=== PATIENT | female | born 1935 | race Caucasian/White ===

== ENCOUNTER 2017-04-26 11:37 | Observation (INO) | payer MEDICARE, OTHER ==
[2017-04-26] MEDS ORDERED: ASPIRIN 81 MG TABLET, CHEWABLE PO ONE (12:06)
--- NOTE | 2017-04-26 12:38 | ER Document Report ---
ED General - General Mode of Arrival: Wheelchair Information source: Patient, Relative TRAVEL OUTSIDE OF THE [place] IN LAST 30 DAYS: No <MARGARET TOM - Last Filed: 04/26/17 16:15> <KIRILL GASPAR - Last Filed: 04/26/17 18:35> - General Chief Complaint: Vomiting Stated Complaint: ALTERED MENTAL STATUS Time Seen by Provider: 04/26/17 11:52 Notes: Patient is an 81 year old female with a history of Parkinsons and Bronchiectasis presents to the emergency department via EMS accompanied by son and daughter and law complaining of a syncopal episode onset this morning. Daughter in law states the patient was sitting in [facility] unresponsive, still breathing with an excessive amount of drooling. Daughter in law states she was unresponsive for around 3 minutes then proceeded to wake up agitated. Patient states that she remembers feeling nauseous before she had her syncopal episode. Patient states that Dr. Mcnulty is her graphics intern in [place] and Dr. Godoy is her PCP. Patient normally takes nebulizer treatments. (MARGARET TOM) - Related Data Allergies/Adverse Reactions: No Known Allergies Allergy (Unverified 10/22/15 20:59) Past Medical History - General Information source: Patient, Relative - Social History Smoking Status: Never Smoker Smoking Education Provided: No Frequency of alcohol use: None Family History: Reviewed & Not Pertinent Patient has suicidal ideation: No Patient has homicidal ideation: No <MARGARET TOM - Last Filed: 04/26/17 16:15> Review of Systems - Review of Systems Constitutional: No symptoms reported EENT: No symptoms reported Cardiovascular: No symptoms reported Respiratory: No symptoms reported Gastrointestinal: See HPI, Nausea Genitourinary: No symptoms reported Female Genitourinary: No symptoms reported Musculoskeletal: No symptoms reported Skin: No symptoms reported Hematologic/Lymphatic: No symptoms reported Neurological/Psychological: See HPI, Lost consciousness -: Yes All other systems reviewed and negative <MARGARET TOM - Last Filed: 04/26/17 16:15> Physical Exam <MARGARET TOM - Last Filed: 04/26/17 16:15> <KIRILL GASPAR - Last Filed: 04/26/17 18:35> - Vital signs Vitals: BP Pulse Ox 136/79 H 97 04/26/17 11:47 04/26/17 11:47 - Notes Notes: GENERAL: Patient appears tired, interacts well. No acute distress. Cachetic HEAD: Left sided slight facial droop around the left eyebrow. EYES: Pupils equal, round, and reactive to light. Extraocular movements intact. ENT: Oral mucosa moist, tongue midline. NECK: Full range of motion. Supple. Trachea midline. LUNGS: Wet cough. Trace expiratory wheezes and rhonchi. No respiratory distress. HEART: Regular rate and rhythm. No murmurs, gallops, or rubs. ABDOMEN: Soft, non-tender. Non-distended. Bowel sounds present in all 4 quadrants. EXTREMITIES: Moves all 4 extremities spontaneously. No edema, radial and dorsalis pedis pulses 2/4 bilaterally. No cyanosis. NEUROLOGICAL: Alert and oriented x3. Normal speech. cranial nerves II through XII grossly intact. Biceps and patellar DTRs 2+ bilaterally. No ataxia. PSYCH: Normal affect, normal mood. SKIN: Warm, dry, normal turgor. No rashes or lesions noted. Multiple ecchymosis on arms bilaterally. (MARGARET TOM) Course - Laboratory Result Diagrams: 04/26/17 12:40 04/26/17 12:40 - Consults Dr. Antunez Time consulted: 16:14 - Accepted patient into Telemetry <MARGARET TOM - Last Filed: 04/26/17 16:15> - Laboratory Result Diagrams: 04/26/17 12:40 04/26/17 12:40 <KIRILL GASPAR - Last Filed: 04/26/17 18:35> - Re-evaluation Re-evalutation: 04/26/17 16:16 CBC shows mild anemia with hemoglobin 10.2, coags normal, CMP grossly unremarkable, cardiac enzymes negative, urinalysis shows moderate blood, unknown source, no signs of infection, CT scan of head is negative, chest x-ray shows COPD which is consistent with her bronchiectasis, EKG does not show any evidence of infarction, patient has not had any arrhythmia on monitor while she has been here. Syncope lasting 3-4 minutes in an 81-year-old is very concerning for possible arrhythmia. Discussed with the hospitalist in the family, Dr. Antunez agrees to admit the patient to his service on the telemetry care unit in observation status. (KIRILL GASPAR) - Vital Signs Vital signs: Temp Pulse Resp BP Pulse Ox 23 H 137/91 H 94 04/26/17 18:03 04/26/17 17:00 04/26/17 17:01 - Laboratory Laboratory results interpreted by me: 04/26/17 04/26/17 04/26/17 12:40 12:40 15:30 Hgb 10.2 L Hct 31.2 L MCH 26.8 L RDW 15.7 H Lymphocytes % 11.5 L Calcium 8.1 L Urine Blood MODERATE H Discharge <MARGARET TOM - Last Filed: 04/26/17 16:15> - Discharge Admitting Provider: Hospitalist - [facility] Unit Admitted: Telemetry <KIRILL GASPAR - Last Filed: 04/26/17 18:35> - Discharge Clinical Impression: Syncope Qualifiers: Syncope type: unspecified Qualified Code(s): R55 - Syncope and collapse Anemia Qualifiers: Anemia type: unspecified type Qualified Code(s): D64.9 - Anemia, unspecified Condition: Fair Disposition: ADMITTED OBSERVATION Scribe Attestation: 04/26/17 18:35 I personally performed the services described in the documentation, reviewed and edited the documentation which was dictated to the scribe in my presence, and it accurately records my words and actions. (KIRILL GASPAR) Scribe Documentation - Scribe Written by Scribe:: Gris Nava, 04/26/2017 13:08 acting as scribe for :: Isac <MARGARET TOM - Last Filed: 04/26/17 16:15>
--- NOTE | 2017-04-26 12:50 | RADIOLOGY REPORT (SQ) ---
EXAM DESCRIPTION: CHEST SINGLE VIEW COMPLETED DATE/TIME: 04/26/2017 12:31 pm REASON FOR STUDY: LOC, cough, bronchectasis COMPARISON: 10/22/2015. NUMBER OF VIEWS: One view. TECHNIQUE: Single frontal radiographic view of the chest acquired. LIMITATIONS: None. FINDINGS: LUNGS AND PLEURA: Chronic pleural and parenchymal scarring. No infiltrates, masses or pne umothorax. No pleural effusion. Attenuated blood vessels and flattened rufino-diaphragms. MEDIASTINUM AND HILAR STRUCTURES: No masses. Contour normal. HEART AND VASCULAR STRUCTURES: Heart normal in size. Normal vasculature. BONES: No acute findings. HARDWARE: None in the chest. OTHER: No other significant finding. IMPRESSION: COPD. NO ACUTE RADIOGRAPHIC FINDING IN THE CHEST. TECHNICAL DOCUMENTATION: JOB ID: [id number] [employer]- All Rights Reserved
[2017-04-26 13:22] LABS: ABSOLUTE BASOPHILS # (AUTO) 0.1 10^3/uL (0.0-0.2); ABSOLUTE EOSINOPHILS # (AUTO) 0.2 10^3/uL (0.0-0.6); ABSOLUTE MONOCYTES (AUTO) 0.8 10^3/uL (0.1-1.4); ABSOLUTE NEUT (AUTO) 6.9 10^3/uL (1.7-8.2); EOSINOPHILS % (AUTO) 2.2 % (0-6); HEMATOCRIT 31.2 % (36.0-47.0); HEMOGLOBIN 10.2 g/dL (12.0-15.5); HGB HCT DIFFERENCE -0.6; LYMPHOCYTES % (AUTO) 11.5 % (13-45); MEAN CORPUSCULAR HEMOGLOBIN 26.8 pg (27.0-33.4); MEAN CORPUSCULAR HGB CONC 32.7 g/dL (32.0-36.0); MEAN CORPUSCULAR VOLUME 82 fl (80-97); MONOCYTES % (AUTO) 8.5 % (3-13); RED BLOOD COUNT 3.81 10^6/uL (3.72-5.28); RED CELL DISTRIBUTION WIDTH 15.7 % (11.5-14.0); SEGMENTED NEUTROPHILS % (AUTO) 76.8 % (42-78); WHITE BLOOD COUNT 8.9 10^3/uL (4.0-10.5)
[2017-04-26 13:24] LABS: PROTHROMBIN TIME 13.9 SEC (11.4-15.4)
--- NOTE | 2017-04-26 13:27 | RADIOLOGY REPORT (SQ) ---
EXAM DESCRIPTION: CT HEAD WITHOUT COMPLETED DATE/TIME: 04/26/2017 1:18 pm REASON FOR STUDY: LOC COMPARISON: None. TECHNIQUE: Axial images acquired through the brain without intravenous contrast. Images reviewed wi th bone, brain and subdural windows. Images stored on PACS. All CT scanners at this facility use dose modulation, iterative reconstruction, and/or weight based d osing when appropriate to reduce radiation dose to as low as reasonably achievable (ALARA). [facility]: Dose Right [facility]: CareDose [facility]: Dose Right [facility]: Teradose 4D [facility]: [employer] RADIATION DOSE: Up-to-date CT equipment and radiation dose reduction techniques were employed. CTDIv ol: 49.0 mGy. DLP: 881 mGy-cm.mGy. LIMITATIONS: None. FINDINGS: VENTRICLES: Prominent. CEREBRUM: No masses. No hemorrhage. No midline shift. Areas of low density in the white matter mos t likely due to chronic micro-vascular ischemic change. No evidence for acute infarction. CEREBELLUM: No masses. No hemorrhage. No alteration of density. No evidence for acute infarction. EXTRAAXIAL SPACES: Age-related involutional change. No fluid collections. No masses. ORBITS AND GLOBE: No intra- or extraconal masses. Normal contour of globe without masses. CALVARIUM: No fracture. PARANASAL SINUSES: No fluid or mucosal thickening. SOFT TISSUES: No mass or hematoma. OTHER: No other significant finding. IMPRESSION: CHRONIC CHANGES OF ATROPHY AND MICROVASCULAR ISCHEMIA. NO ACUTE PROCESS. EVIDENCE OF ACUTE STROKE: NO. TECHNICAL DOCUMENTATION: JOB ID: [id number] Quality ID # [id number]: Final reports with documentation of one or more dose reduction techniques (e.g., Au tomated exposure control, adjustment of the mA and/or kV according to patient size, use of iterative reconstruction technique) 2010 [employer]- All Rights Reserved
[2017-04-26 13:37] LABS: ALANINE AMINOTRANSFERASE 17 U/L (9-52); ALBUMIN 3.8 g/dL (3.5-5.0); ALKALINE PHOSPHATASE 103 U/L (38-126); ANION GAP 15 (5-19); ASPARTATE AMINO TRANSFERASE 21 U/L (14-36); BILIRUBIN,DIRECT 0.4 mg/dL (0.0-0.4); BILIRUBIN,TOTAL 0.4 mg/dL (0.2-1.3); BLOOD UREA NITROGEN 11 mg/dL (7-20); CALCIUM 8.1 mg/dL (8.4-10.2); CARBON DIOXIDE 27 mmol/L (22-30); CHLORIDE 102 mmol/L (98-107); CREATINE KINASE 58 U/L (30-135); CREATININE RESULT 0.74 mg/dL (0.52-1.25); GLUCOSE 84 mg/dL (75-110); POTASSIUM 4.3 mmol/L (3.6-5.0); SODIUM 143.5 mmol/L (137-145); TOTAL PROTEIN 7.2 g/dL (6.3-8.2)
[2017-04-26 13:48] LABS: CREATINE KINASE MB 1.05 ng/mL (<4.55); TROPONIN I < 0.012 ng/mL
[2017-04-26 15:50] LABS: APPEARANCE,URINE CLEAR; BILIRUBIN,URINE NEGATIVE (NEGATIVE); GLUCOSE, URINE NEGATIVE (NEGATIVE); KETONES,URINE NEGATIVE (NEGATIVE); LEUKOCYTE ESTERASE,URINE NEGATIVE (NEGATIVE); NITRITE,URINE NEGATIVE (NEGATIVE); PROTEIN,URINE NEGATIVE (NEGATIVE); URINE SPECIFIC GRAVITY 1.008; UROBILINOGEN,URINE NEGATIVE mg/dL (<2.0)
[2017-04-26] MEDS ORDERED: ONDANSETRON HCL INJ/PF 4 MG/2 ML SDV IV PRN (16:16)
[2017-04-26] MEDS: NORMAL SALINE 1000 ML 1,000 ML IV PRN ×2 (16:49→22:43)
--- NOTE | 2017-04-26 17:39 | PDOC H&P ---
History of Present Illness Admission Date/PCP: 04/26/17 16:30 Patient complains of: Syncope in [facility] today History of Present Illness: CIRO CLARKE is a 81 year old female with history of Parkinson's disease and bronchiectasis, presented to the emergency room via EMS after having a syncopal episode while in [place] this morning. The patient states that while in [place], she started being "sick to my stomach" and did complain to her [id number]. She then passed out and does not remember any other events. The patient's son states that she was unresponsive, had excessive amounts of drooling, but did not have any seizure activity and was not incontinent of urine or stool. She was unconscious for about 4 minutes, after which she came to bed was still somewhat confused in the post icteric period. She denied having any chest pain , shortness of breath, headache, focal neurologic deficit. In the emergency room, initial troponin was normal. EKG revealed sinus rhythm at 65 bpm, with borderline R-wave progression in the anterior leads. Chest x- ray did not reveal any acute abnormalities. Head CT scan showed chronic changes of atrophy with microvascular ischemia but no acute processes noted Past Medical History Medical History: Other - Parkinson, bronchiectasis Past Surgical History Past Surgical History: Denies Social History Information Source: Patient, Relative, Emergency Med Personnel Lives with: Family Smoking Status: Never Smoker Frequency of Alcohol Use: None Hx Recreational Drug Use: No Hx Prescription Drug Abuse: No - Advance Directive Resuscitation Status: Do Not Resuscitate Surrogate healthcare decision maker:: Patient does have an advanced directive. Son is POA Family History Family History: Reviewed & Not Pertinent - Parental Family History Reviewed: Yes Children Family History Reviewed: No Sibling(s) Family History Reviewed.: No Medication/Allergy Home Medications: Alendronate Sodium 70 mg PO ASDIR PRN 10/22/15 Gabapentin 300 mg PO TID 10/22/15 Acetaminophen [Tylenol 325 mg Tablet] 650 mg PO Q4HP PRN tablet 10/25/15 Famotidine [Pepcid 20 mg Tablet] 20 mg PO Q12 tablet 10/25/15 Ipratropium/Albuterol Sulfate [Duoneb 3 ml Ampul] 3 ml [facility] [id number] vial.[facility] Levofloxacin [Levaquin 500 mg Tablet] 500 mg PO DAILY tablet 10/25/15 Meclizine HCl [Antivert 25 mg Tablet] 25 mg PO Q8HP PRN tablet 10/25/15 Meloxicam [Mobic 7.5 mg Tablet] 7.5 mg PO DAILY PRN tablet 10/25/15 Methylprednisolone [Medrol Dosepack (4 mg/Tab) 21 Tab/Dosepak] 4 mg PO ASDIR PRN #21 tab.ds.pk 10/25/15 Tizanidine HCl [Zanaflex 4 mg Tablet] 4 mg PO BID tablet 10/25/15 Tramadol HCl [Ultram 50 mg Tablet] 50 mg PO Q6HP PRN #40 tablet 10/25/15 Allergies/Adverse Reactions: No Known Allergies Allergy (Unverified 10/22/15 20:59) Physical Exam Vital Signs: Temp Pulse Resp BP Pulse Ox 13 158/75 H 95 04/26/17 16:01 04/26/17 16:00 04/26/17 16:01 General appearance: PRESENT: no acute distress, cooperative, thin Head exam: PRESENT: atraumatic, normocephalic Eye exam: PRESENT: conjunctiva pink, EOMI, PERRLA Mouth exam: PRESENT: moist Neck exam: PRESENT: full ROM. ABSENT: carotid bruit, JVD, lymphadenopathy, meningismus, tenderness, thyromegaly, tracheal deviation, tracheostomy, other Respiratory exam: PRESENT: decreased breath sounds, symmetrical, unlabored. ABSENT: accessory muscle use, chest wall tenderness, clear to auscultation jessica, crackles, prolonged expiratory phas, rales, retraction, rhonchi, stridor, tachypnea, wheezes, other Cardiovascular exam: PRESENT: RRR, +S1, +S2. ABSENT: bradycardia, clicks, diastolic murmur, gallop, irregular rhythm, rubs, systolic murmur, tachycardia, other Pulses: PRESENT: normal carotid pulses, normal dorsalis pedis pul GI/Abdominal exam: PRESENT: normal bowel sounds, soft. ABSENT: ascites, diminished bowel sounds, distended, firm, guarding, hernia, hyperactive bowel sounds, hypoactive bowel sounds, mass, Soto's sign, organolmegaly, rebound, rigid, tenderness, other Rectal exam: PRESENT: deferred Extremities exam: PRESENT: full ROM. ABSENT: calf tenderness, clubbing, joint swelling, pedal edema, tenderness, +1 edema, +2 edema, other Musculoskeletal exam: PRESENT: ambulatory, full ROM. ABSENT: deformity, dislocation, normal inspection, tenderness, other Neurological exam: PRESENT: alert, awake, oriented to person, oriented to place , oriented to time, oriented to situation, reflexes normal, CN II-XII grossly intact. ABSENT: altered, abnormal gait, ataxia, motor sensory deficit, normal gait, aphasic, other Psychiatric exam: PRESENT: anxious Skin exam: PRESENT: intact, pallor, warm Results Laboratory Results: Chemistry, hematology results is not reviewed by myself: Grossly within normal limits Impressions: Head CT 04/26/17 12:06 IMPRESSION: CHRONIC CHANGES OF ATROPHY AND MICROVASCULAR ISCHEMIA. NO ACUTE PROCESS. EVIDENCE OF ACUTE STROKE: NO. Chest X-Ray 04/26/17 12:07 IMPRESSION: COPD. NO ACUTE RADIOGRAPHIC FINDING IN THE CHEST. Status: Image reviewed by me Assessment & Plan - Diagnosis (1) Syncope Qualifiers: Syncope type: unspecified Qualified Code(s): R55 - Syncope and collapse Is this a current diagnosis for this admission?: Yes Plan: Syncope with collapse of unclear etiology, possibly cardiac. Head CT scan without any acute abnormality. Will obtain an echocardiogram. Follow serial cardiac enzymes. Follow orthostatic vitals. Maintain on fall precautions. (2) Anemia Qualifiers: Anemia type: unspecified type Qualified Code(s): D64.9 - Anemia, unspecified Is this a current diagnosis for this admission?: Yes Plan: Normocytic anemia. Will obtain iron studies, B12 and folate levels. No indication for PRBC transfusion at this time (3) History of bronchiectasis Is this a current diagnosis for this admission?: Yes Plan: Chronic, stable. Continue current care (4) Parkinsons disease Is this a current diagnosis for this admission?: Yes Plan: Chronic, stable. Continue current care (5) DVT prophylaxis Plan: Subcutaneous Lovenox - Time Time Spent: 50 to 70 Minutes - I have reviewed the diagnosis, prognosis, plan of care with the patient and the patient's son in the emergency room. I have addressed their concerns and answered their questions. They have both expressed a clear understanding of this plan of care Medications reviewed and adjusted accordingly: Yes Anticipated discharge: Home - Inpatient Certification Medical Necessity: Need for Neurological Checks, Risk of Diagnosis Which Will Require Inpatient Eval/Care/Monitoring
[2017-04-26 19:43] LABS: TROPONIN I < 0.012 ng/mL
[2017-04-26] MEDS: ACETAMINOPHEN 325 MG TABLET PO PRN (22:41)
[2017-04-26] MEDS: GABAPENTIN 300 MG CAPSULE PO SCH (22:42)
[2017-04-26] MEDS: FAMOTIDINE 20 MG TABLET PO SCH (22:42)
[2017-04-26] MEDS: CARBIDOPA/LEVODOPA 25-100 MG TABLET PO SCH (22:42)
[2017-04-27] MEDS: NORMAL SALINE 1000 ML 1,000 ML IV PRN (01:24)
[2017-04-27] MEDS: CARBIDOPA/LEVODOPA 25-100 MG TABLET PO SCH ×2 (05:43→13:29)
[2017-04-27] MEDS: ACETAMINOPHEN 325 MG TABLET PO PRN (05:43)
[2017-04-27] MEDS: GABAPENTIN 300 MG CAPSULE PO SCH ×2 (05:43→13:29)
[2017-04-27 08:35] LABS: ABSOLUTE BASOPHILS # (AUTO) 0.1 10^3/uL (0.0-0.2); ABSOLUTE EOSINOPHILS # (AUTO) 0.1 10^3/uL (0.0-0.6); ABSOLUTE LYMPHOCYTES (AUTO) 0.9 10^3/uL (0.5-4.7); ABSOLUTE MONOCYTES (AUTO) 0.6 10^3/uL (0.1-1.4); ABSOLUTE NEUT (AUTO) 5.1 10^3/uL (1.7-8.2); BASOPHILS % (AUTO) 0.8 % (0-2); EOSINOPHILS % (AUTO) 2.1 % (0-6); HEMATOCRIT 32.2 % (36.0-47.0); HEMOGLOBIN 10.3 g/dL (12.0-15.5); HGB HCT DIFFERENCE -1.3; LYMPHOCYTES % (AUTO) 13.2 % (13-45); MEAN CORPUSCULAR HGB CONC 31.9 g/dL (32.0-36.0); MEAN CORPUSCULAR VOLUME 82 fl (80-97); MONOCYTES % (AUTO) 8.6 % (3-13); RED BLOOD COUNT 3.96 10^6/uL (3.72-5.28); SEGMENTED NEUTROPHILS % (AUTO) 75.3 % (42-78); WHITE BLOOD COUNT 6.7 10^3/uL (4.0-10.5)
--- NOTE | 2017-04-27 08:44 | Physician Advisory Note ---
Physician Advisor ProgressNote .: [facility], I have reviewed the medical record for this patient. Physician Advisor Statement: Please consider documenting, if you agree: 1. Most likely cause of syncope: "arrythmia"? "cerebrovascular atherosclerosis"? ... 2. "cerebrovascular atherosclerosis" 3. "osteoporosis"? 4. "protein-calorie malnutrition [state mod or severe] with BMI 16, ____[?wt loss, ?appetite loss, ]" [if possible, give specifics on intake, wt loss, loss of SQ fat & muscle mass, diminished hand intellectual property lawyer strength, & clinical importance such as (A) nutritional assessment ordered, (B) modified diet or supplements ordered, (C) additional labs ordered, (D) prolonged wound healing time, (E) delayed infxn clearance] Status: approp'ly brought in as Outpt Obs to start. If pt develops new concerning clinical issues, or does not improve adequately enough to safely go home today, etc., please document issues & clinical concerns ("I am concerned about ") & may then change to Inpatient status. Thanks! CK
[2017-04-27 09:04] LABS: ALANINE AMINOTRANSFERASE 24 U/L (9-52); ALBUMIN 3.4 g/dL (3.5-5.0); ALKALINE PHOSPHATASE 95 U/L (38-126); ANION GAP 8 (5-19); ASPARTATE AMINO TRANSFERASE 15 U/L (14-36); BILIRUBIN,DIRECT 0.5 mg/dL (0.0-0.4); BILIRUBIN,TOTAL 0.5 mg/dL (0.2-1.3); BLOOD UREA NITROGEN 9 mg/dL (7-20); CALCIUM 8.8 mg/dL (8.4-10.2); CARBON DIOXIDE 27 mmol/L (22-30); CHLORIDE 106 mmol/L (98-107); CREATININE RESULT 0.67 mg/dL (0.52-1.25); GLUCOSE 87 mg/dL (75-110); MAGNESIUM 2.2 mg/dL (1.6-2.3); POTASSIUM 4.2 mmol/L (3.6-5.0); SODIUM 141.1 mmol/L (137-145); TOTAL PROTEIN 6.7 g/dL (6.3-8.2)
--- NOTE | 2017-04-27 09:13 | EKG REPORT ---
SEVERITY:- BORDERLINE ECG - SINUS RHYTHM PROBABLE LEFT ATRIAL ABNORMALITY : Confirmed by: Rui Hoyt 27-Apr-2017 09:12:28
--- NOTE | 2017-04-27 09:13 | EKG REPORT ---
SEVERITY:- BORDERLINE ECG - SINUS RHYTHM PROBABLE LEFT ATRIAL ABNORMALITY BORDERLINE R WAVE PROGRESSION, ANTERIOR LEADS : Confirmed by: Rui Hoyt 27-Apr-2017 09:12:41
[2017-04-27] MEDS ORDERED: ENOXAPARIN SODIUM INJ 40 MG/0.4 ML DISP.SYRIN SUBCUT SCH (10:00)
[2017-04-27] MEDS ORDERED: DOCUSATE SODIUM 100 MG CAPSULE PO SCH (10:00)
[2017-04-27] MEDS: FAMOTIDINE 20 MG TABLET PO SCH (10:18)
[2017-04-27 13:38] VITALS: BP 117/59
--- NOTE | 2017-04-27 14:11 | XCELERA REPORT ---
[address] [address] Transthoracic Echocardiogram Report Name: CIRO CLARKE Age: 81 yrs Gender: Female : 1935 Patient Status: Inpatient Patient Location: [address] [place] [address] Study Date: 04/27/2017 09:25 AM Height: 66 in Weight: 99 lb BSA: 1.5 m2 Procedure: A complete two-dimensional transthoracic echocardiogram was performed (2D, M-mode, spectral and color flow Doppler). The study was technically adequate with some images being suboptimal in quality. Reason For Study: SYNCOPE Ordering Physician: ED LLOYD Performed By: Felecia Bishop Interpretation Summary The left ventricular ejection fraction is normal. Doppler measurements suggest pseudonormalized left ventricular relaxation, which is associated with grade II/IV or mild to moderate diastolic dysfunction There is borderline concentric left ventricular hypertrophy. The left ventricle is grossly normal size. Wall motion cannot be accurately commented on, but no definite regional wall motion abnormalities noted. The right ventricular systolic function is normal. The left atrial size is normal. The right atrium is normal in size There is a trace amount of mitral regurgitation There is no mitral valve stenosis. There is a mild amount of aortic regurgitation There is no aortic valve stenosis There is a trace to mild amount of tricuspid regurgitation Right ventricular systolic pressure is at the upper limits of normal There is no pericardial effusion. MMode/2D Measurements & Calculations RVDd: 2.1 cm LVIDd: 3.7 cm FS: 39.9 % Ao root diam: 3.2 cm IVSd: 0.96 cm LVIDs: 2.3 cm EDV(Teich): 59.8 ml LVPWd: 0.96 cmESV(Teich): 17.2 ml Ao root area: 8.1 cm2 EF(Teich): 71.3 % LA dimension: 2.9 cm LVOT diam: 1.9 cm LVOT area: 2.9 cm2 Doppler Measurements & Calculations MV E max chay: MV P1/2t max chay: Ao V2 max: AI max chay: 80.6 cm/sec 81.6 cm/sec 119.7 cm/sec 305.3 cm/sec MV A max chay: MV P1/2t: 57.2 msec Ao max PG: AI max P.9 cm/sec MVA(P1/2t): 3.8 cm2 5.7 mmHg 37.3 mmHg MV E/A: 1.2 MV dec slope: MARIA ISABEL(V,D): 2.6 cm2 AI dec slope: 417.7 cm/sec2 118.5 cm/sec2 AI P1/2t: 754.4 msec LV V1 max PG: PA V2 max: TR max chay: 4.9 mmHg 63.8 cm/sec 265.8 cm/sec LV V1 max: PA max P.6 mmHg TR max P.3 cm/sec 28.3 mmHg Left Ventricle The left ventricle is grossly normal size. There is borderline concentric left ventricular hypertrophy. The left ventricular ejection fraction is normal. Doppler measurements suggest pseudonormalized left ventricular relaxation, which is associated with grade II/IV or mild to moderate diastolic dysfunction. Wall motion cannot be accurately commented on, but no definite regional wall motion abnormalities noted. Right Ventricle The right ventricle is grossly normal size. There is normal right ventricular wall thickness. The right ventricular systolic function is normal. Atria The right atrium is normal in size. The left atrial size is normal. Interarterial septum not well visualized and not well dopplered. Cannot comment on ASD/PFO presence. Mitral Valve The mitral valve is grossly normal. There is no mitral valve stenosis. There is a trace amount of mitral regurgitation. Aortic Valve The aortic valve is sclerotic, but shows no functional abnormality. There is no aortic valve stenosis. There is a mild amount of aortic regurgitation. Tricuspid Valve The tricuspid valve is not well visualized, but is grossly normal. There is no tricuspid stenosis. There is a trace to mild amount of tricuspid regurgitation. Right ventricular systolic pressure is at the upper limits of normal. Pulmonic Valve The pulmonic valve is not well visualized. Great Vessels The aortic root is not well visualized but is probably normal size. The inferior vena cava appeared normal and decreased > 50% with respiration (RAP 5-10 mmHg). Effusions There is no pericardial effusion. : ED LLOYD > Rui Hoyt
--- NOTE | 2017-04-27 14:35 | PDOC DISCHARGE SUMMARY ---
General - Admit/Disc Date/PCP Admission Date/Primary Care Provider: 04/26/17 16:30 Discharge Date: 04/27/17 - Discharge Diagnosis (1) Syncope Is this a current diagnosis for this admission?: Yes Summary: Syncope with collapse of uncertain etiology (possibly due to cardiac arrhythmias ). Head CT scan with no acute abnormalities. EKG and telemetry strips with no significant dysrhythmias. Serial cardiac enzymes negative. Orthostatic vitals within normal limits. Echocardiogram is still pending. We will discharge the patient today if echocardiogram grossly normal (2) Anemia Is this a current diagnosis for this admission?: Yes Summary: Normocytic anemia. Hb 10.3. We will defer outpatient workup to PCP (3) History of bronchiectasis Is this a current diagnosis for this admission?: Yes Summary: Stable, chronic. This is associated with chronic productive cough (4) Parkinsons disease Is this a current diagnosis for this admission?: Yes Summary: Stable, chronic, resume home Sinemet (5) Protein-calorie malnutrition, severe Is this a current diagnosis for this admission?: Yes Summary: Protein calorie malnutrition, severe, BMI 16, with significant appetite loss. 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 Patient states she uses dietary supplements at home - Additional Information Resuscitation Status: Do Not Resuscitate Discharge Diet: As Tolerated Discharge Activity: Activity As Tolerated, Balance Activity w/Rest Home Medications: Gabapentin 300 mg PO TID 10/22/15 Benzonatate 200 mg PO TID PRN 04/26/17 Carbidopa/Levodopa [Carbidopa-Levo 25-100 mg Odt] 25 - 100 mg PO TID 04/26/17 History of Present Illness Patient complains of: Syncope in [place] History of Present Illness: CIRO CLARKE is a 81 year old female with history of Parkinson's disease and bronchiectasis, presented to the emergency room via EMS after having a syncopal episode while in [place] this morning. The patient states that while in [place], she started being "sick to my stomach" and did complain to her hscvozax-et-jop. She then passed out and does not remember any other events. The patient's son states that she was unresponsive, had excessive amounts of drooling, but did not have any seizure activity and was not incontinent of urine or stool. She was unconscious for about 4 minutes, after which she came to bed was still somewhat confused in the post icteric period. She denied having any chest pain , shortness of breath, headache, focal neurologic deficit. In the emergency room, initial troponin was normal. EKG revealed sinus rhythm at 65 bpm, with borderline R-wave progression in the anterior leads. Chest x- ray did not reveal any acute abnormalities. Head CT scan showed chronic changes of atrophy with microvascular ischemia but no acute processes noted Physical Exam Vital Signs: Temp Pulse Resp BP Pulse Ox 97.6 F 68 16 136/67 H 94 04/27/17 07:07 04/27/17 08:00 04/27/17 08:00 04/27/17 08:00 04/27/17 08:00 Intake & Output 04/26/17 04/27/17 04/28/17 06:59 06:59 06:59 Intake Total 1660 Balance 1660 Weight 45.2 kg General appearance: PRESENT: no acute distress, cooperative, thin - Cachectic Head exam: PRESENT: atraumatic, normocephalic Eye exam: PRESENT: conjunctiva pink, EOMI, PERRLA Respiratory exam: PRESENT: stridor, unlabored. ABSENT: accessory muscle use, chest wall tenderness, clear to auscultation jessica, crackles, decreased breath sounds, prolonged expiratory phas, rales, retraction, rhonchi, symmetrical, tachypnea, wheezes, other Cardiovascular exam: PRESENT: RRR, +S1, +S2. ABSENT: bradycardia, clicks, diastolic murmur, gallop, irregular rhythm, rubs, systolic murmur, tachycardia, other GI/Abdominal exam: PRESENT: normal bowel sounds, soft. ABSENT: ascites, diminished bowel sounds, distended, firm, guarding, hernia, hyperactive bowel sounds, hypoactive bowel sounds, mass, Soto's sign, organolmegaly, rebound, rigid, tenderness, other Neurological exam: PRESENT: alert, awake, oriented to person, oriented to place , oriented to time, oriented to situation, reflexes normal, CN II-XII grossly intact Psychiatric exam: PRESENT: anxious Results Laboratory Results: 04/27/17 08:17 04/27/17 08:17 04/27/17 04/27/17 08:17 08:17 WBC 6.7 RBC 3.96 Hgb 10.3 L Hct 32.2 L MCV 82 MCH 26.0 L MCHC 31.9 L RDW 16.0 H Plt Count 254 Seg Neutrophils % 75.3 Lymphocytes % 13.2 Monocytes % 8.6 Eosinophils % 2.1 Basophils % 0.8 Absolute Neutrophils 5.1 Absolute Lymphocytes 0.9 Absolute Monocytes 0.6 Absolute Eosinophils 0.1 Absolute Basophils 0.1 Sodium 141.1 Potassium 4.2 Chloride 106 Carbon Dioxide 27 Anion Gap 8 BUN 9 Creatinine 0.67 Est GFR ( Amer) > 60 Est GFR (Non-Af Amer) > 60 Glucose 87 Calcium 8.8 Magnesium 2.2 Total Bilirubin 0.5 AST 15 ALT 24 Alkaline Phosphatase 95 Total Protein 6.7 Albumin 3.4 L 04/26/17 04/27/17 04/27/17 19:11 01:25 08:17 Troponin I < 0.012 < 0.012 < 0.012 NT-Pro-B Natriuret Pep 274 Impressions: Head CT 04/26/17 12:06 IMPRESSION: CHRONIC CHANGES OF ATROPHY AND MICROVASCULAR ISCHEMIA. NO ACUTE PROCESS. EVIDENCE OF ACUTE STROKE: NO. Chest X-Ray 04/26/17 12:07 IMPRESSION: COPD. NO ACUTE RADIOGRAPHIC FINDING IN THE CHEST. Status: Image reviewed by me Qualifiers PATEINT BEING DISCHARGED WITH ANY OF THE FOLLOWING DIAGNOSIS?: No Plan Time Spent: Greater than 30 Minutes - I have reviewed the discharge diagnosis and discharge plan with the patient. All her concerns and questions have been personally addressed by myself. She has expressed a clear understanding of this discharge plan.
== END 2017-04-27 16:10 | disposition home or self-care (01) ==
LOC: ER 11:37 → EH 16:30 → 3N 18:24
PROVIDERS: ADMIT Emergency Medicine; ATTEND Emergency Medicine
DX: R55 Syncope and collapse (principal); I51.89 Other ill-defined heart diseases; D64.9 Anemia, unspecified; J47.9 Bronchiectasis, uncomplicated; G20 Parkinson's disease; E43 Unspecified severe protein-calorie malnutrition; R29.810 Facial weakness; Z68.1 Body mass index [BMI] 19.9 or less, adult; K11.7 Disturbances of salivary secretion; Z66 Do not resuscitate; Z79.899 Other long term (current) drug therapy
CPT/HCPCS: 93005 ×2; 99285; 36415 ×2; 82553; 82550; 83735; 85025 ×2; 85610; 80053 ×2; 81001; 84484 ×2; 83880; 93306; 71010; 70450; 93010 ×2; A9270 ×10; J1650; J7030 ×2; G0378; J3490

== ENCOUNTER 2018-02-14 09:47 | Emergency (ER) | payer MEDICARE, OTHER ==
[2018-02-14 10:54] LABS: ABSOLUTE BASOPHILS # (AUTO) 0.1 10^3/uL (0.0-0.2); ABSOLUTE LYMPHOCYTES (AUTO) 0.6 10^3/uL (0.5-4.7); ABSOLUTE MONOCYTES (AUTO) 0.6 10^3/uL (0.1-1.4); ABSOLUTE NEUT (AUTO) 7.3 10^3/uL (1.7-8.2); BASOPHILS % (AUTO) 1.2 % (0-2); EOSINOPHILS % (AUTO) 0.4 % (0-6); HEMATOCRIT 35.6 % (36.0-47.0); HEMOGLOBIN 11.5 g/dL (12.0-15.5); LYMPHOCYTES % (AUTO) 6.6 % (13-45); MEAN CORPUSCULAR HGB CONC 32.4 g/dL (32.0-36.0); MEAN CORPUSCULAR VOLUME 83 fl (80-97); MONOCYTES % (AUTO) 7.3 % (3-13); PLATELET COUNT 355 10^3/uL (150-450); RED BLOOD COUNT 4.27 10^6/uL (3.72-5.28); RED CELL DISTRIBUTION WIDTH 15.4 % (11.5-14.0); SEGMENTED NEUTROPHILS % (AUTO) 84.5 % (42-78); TOTAL CELLS COUNTED % (AUTO) 100 %; WHITE BLOOD COUNT 8.6 10^3/uL (4.0-10.5)
[2018-02-14 11:01] LABS: INTERNATIONAL RATION (INR) 0.97; PROTHROMBIN TIME 13.4 SEC (11.4-15.4)
[2018-02-14 11:11] LABS: ALANINE AMINOTRANSFERASE < 6 U/L (9-52); ALBUMIN 3.9 g/dL (3.5-5.0); ALKALINE PHOSPHATASE 126 U/L (38-126); ANION GAP 9 (5-19); ASPARTATE AMINO TRANSFERASE 11 U/L (14-36); BILIRUBIN,DIRECT 0.3 mg/dL (0.0-0.4); BILIRUBIN,TOTAL 0.6 mg/dL (0.2-1.3); BLOOD UREA NITROGEN 9 mg/dL (7-20); CALCIUM 9.2 mg/dL (8.4-10.2); CARBON DIOXIDE 29 mmol/L (22-30); CHLORIDE 102 mmol/L (98-107); GLUCOSE 96 mg/dL (75-110); SODIUM 139.6 mmol/L (137-145); TOTAL PROTEIN 8.2 g/dL (6.3-8.2)
[2018-02-14] MEDS ORDERED: NORMAL SALINE 500 ML IV ONE (11:11)
[2018-02-14] MEDS ORDERED: ONDANSETRON HCL INJ/PF 4 MG/2 ML SDV IV ONE (11:11)
--- NOTE | 2018-02-14 11:14 | ER Document Report ---
ED General - General Chief Complaint: Passed Out Prior to Arrival Stated Complaint: FALL/DIZZY Time Seen by Provider: 02/14/18 10:24 Mode of Arrival: Medic Information source: Patient, Relative Notes: This is an 82-year-old female with a history of Parkinson's disease and bronchiectasis who is brought into the emergency room with episode of syncope at home. Patient was in her chair and felt nauseous and dizzy. She did eat a small amount and 15 minutes after had an episode of vomiting and then later had back and was on responsive for a few minutes. Patient did have family at the scene. Currently, she does complain of some nausea. TRAVEL OUTSIDE OF THE [place] IN LAST 30 DAYS: No - HPI Onset: Just prior to arrival Onset/Duration: Sudden Quality of pain: No pain Severity: None Pain Level: Denies Associated symptoms: Nausea, Vomiting. denies: Chest pain, Fever, Shortness of breath Exacerbated by: Denies Relieved by: Denies Similar symptoms previously: No Recently seen / treated by doctor: No - Related Data Allergies/Adverse Reactions: No Known Allergies Allergy (Verified 02/14/18 09:47) Past Medical History - General Information source: Relative - Social History Smoking Status: Unknown if Ever Smoked Cigarette use (# per day): No Chew tobacco use (# tins/day): No Frequency of alcohol use: None Drug Abuse: None Lives with: Family Family History: Reviewed & Not Pertinent - Patient has suicidal ideation: No Patient has homicidal ideation: No - Past Medical History Cardiac Medical History: Reports: None Pulmonary Medical History: Reports: None EENT Medical History: Reports: None Neurological Medical History: Reports: Other - Parkinson's disease Endocrine Medical History: Reports: None Renal/ Medical History: Denies: Hx Peritoneal Dialysis Malignancy Medical History: Reports: None GI Medical History: Reports: None Musculoskeletal Medical History: Reports None Skin Medical History: Reports None Psychiatric Medical History: Reports: None Traumatic Medical History: Reports: None Infectious Medical History: Reports: None Surgical Hx: Negative Review of Systems - Review of Systems Constitutional: denies: Chills, Fever EENT: No symptoms reported Cardiovascular: See HPI, Lightheaded Respiratory: No symptoms reported Gastrointestinal: No symptoms reported Genitourinary: No symptoms reported Female Genitourinary: No symptoms reported Musculoskeletal: No symptoms reported Skin: No symptoms reported Hematologic/Lymphatic: No symptoms reported Neurological/Psychological: See HPI Physical Exam - Vital signs Vitals: Temp Pulse Resp BP Pulse Ox 97.4 F 71 14 91/53 L 91 L 02/14/18 09:54 02/14/18 09:54 02/14/18 09:54 02/14/18 09:54 02/14/18 09:54 Notes: Physical exam: GENERAL: 82-year-old female, alert and oriented 3, no acute distress. He does appear weak. HEAD: Atraumatic, normocephalic. EYES: Pupils equal round and reactive to light, extraocular movements intact, sclera anicteric, conjunctiva are normal. ENT: TMs normal, nares patent, oropharynx clear without exudates. Moist mucous membranes. NECK: Normal range of motion, supple without obvious mass or JVD. LUNGS: Breath sounds clear to auscultation bilaterally and equal. No wheezes rales or rhonchi. HEART: Regular rate and rhythm without murmurs, rubs or gallops. ABDOMEN: Soft, normoactive bowel sounds. No tenderness to palpation. No guarding, no rebound. No masses appreciated. Rectal: No masses, stool brown, sent for study EXTREMITIES: Normal range of motion, no pitting or edema. No clubbing or cyanosis. NEUROLOGICAL: Cranial nerves II through XII grossly intact. Normal speech, moving all extremities. PSYCH: Normal mood, normal affect. SKIN: Warm, Dry, normal turgor, no rashes or lesions noted. Course - Re-evaluation Re-evalutation: 02/14/18 20:34 Discussed the results of the tests with the patient and family. The patient would like to go home. She was up to the bathroom and her nausea and dizziness have resolved. I have given them a copy of the test results to follow-up with the primary care doctor. - Vital Signs Vital signs: Temp Pulse Resp BP Pulse Ox 98.6 F 71 19 143/72 H 99 02/14/18 13:21 02/14/18 10:27 02/14/18 15:00 02/14/18 14:00 02/14/18 15:00 - Laboratory Result Diagrams: 02/14/18 10:23 02/14/18 10:23 Laboratory results interpreted by me: 02/14/18 02/14/18 10:23 10:23 Hgb 11.5 L Hct 35.6 L RDW 15.4 H Seg Neutrophils % 84.5 H Lymphocytes % 6.6 L AST 11 L ALT < 6 L - Diagnostic Test Radiology reviewed: Image reviewed, Reports reviewed - CT of the head showed no acute bleed or stroke Discharge - Discharge Clinical Impression: Vasovagal syncope, Nausea Condition: Stable Disposition: HOME, SELF-CARE Additional Instructions: Labs look good today. CT of the head showed no acute process. The chest x-ray did show chronic changes suggestive of COPD which is what you would expect with chronic bronchiectasis. I would continue current medicines. Take Zofran for nausea. Return to the emergency room for any worsening symptoms: Worsening dizziness, nausea or any concerns or getting worse. Follow-up with your primary care doctor: Bring a copy of today's reports and labs with you when you go.
--- NOTE | 2018-02-14 11:51 | RADIOLOGY REPORT (SQ) ---
EXAM DESCRIPTION: CHEST SINGLE VIEW COMPLETED DATE/TIME: 02/14/2018 11:32 am REASON FOR STUDY: syncope COMPARISON: 04/26/2017. EXAM PARAMETERS: NUMBER OF VIEWS: One view. TECHNIQUE: Single frontal radiographic view of the chest acquired. RADIATION DOSE: NA LIMITATIONS: None. FINDINGS: LUNGS AND PLEURA: Hyperinflation consistent with COPD. Chronic bilateral interstitial thomas nges and bilateral apical pleural thickening. MEDIASTINUM AND HILAR STRUCTURES: No masses. Contour normal. HEART AND VASCULAR STRUCTURES: The heart is normal with normal pulmonary vasculature. BONES: No acute findings. HARDWARE: None in the chest. OTHER: Chest leads are in place. IMPRESSION: COPD with chronic bilateral interstitial changes and bilateral apical pleural thickening . No significant interval change TECHNICAL DOCUMENTATION: JOB ID: [id number] [id number] 2010 [employer]- All Rights Reserved Reading location - IP/workstation name: [email or web address]
--- NOTE | 2018-02-14 11:59 | RADIOLOGY REPORT (SQ) ---
EXAM DESCRIPTION: CT HEAD WITHOUT COMPLETED DATE/TIME: 02/14/2018 11:32 am REASON FOR STUDY: dizzy, syncope COMPARISON: 04/26/2017. TECHNIQUE: Axial images acquired through the brain without intravenous contrast. Images reviewed wi th bone, brain and subdural windows. Images stored on PACS. All CT scanners at this facility use dose modulation, iterative reconstruction, and/or weight based d osing when appropriate to reduce radiation dose to as low as reasonably achievable (ALARA). [facility]: Dose Right [facility]: CareDose [facility]: Dose Right [facility]: Teradose 4D [facility]: Smart Guzu RADIATION DOSE: CT Rad equipment meets quality standard of care and radiation dose reduction techniq ues were employed. CTDIvol: 53.2 mGy. DLP: 991 mGy-cm.mGy. LIMITATIONS: None. FINDINGS: VENTRICLES: Prominent. CEREBRUM: No masses. No hemorrhage. No midline shift. Areas of low density in the white matter mos t likely due to chronic micro-vascular ischemic change. No evidence for acute infarction. CEREBELLUM: No masses. No hemorrhage. No alteration of density. No evidence for acute infarction. EXTRAAXIAL SPACES: Age-related involutional change. No fluid collections. No masses. ORBITS AND GLOBE: No intra- or extraconal masses. Normal contour of globe without masses. CALVARIUM: No fracture. PARANASAL SINUSES: No fluid or mucosal thickening. SOFT TISSUES: No mass or hematoma. OTHER: No other significant finding. IMPRESSION: CHRONIC CHANGES OF ATROPHY AND MICROVASCULAR ISCHEMIA. NO ACUTE PROCESS. EVIDENCE OF ACUTE STROKE: NO. TECHNICAL DOCUMENTATION: JOB ID: [id number] Quality ID # [id number]: Final reports with documentation of one or more dose reduction techniques (e.g., Au tomated exposure control, adjustment of the mA and/or kV according to patient size, use of iterative reconstruction technique) 2010 [employer]- All Rights Reserved Reading location - IP/workstation name: [email or web address]
[2018-02-14 14:42] VITALS: BP 143/72
[2018-02-14] MEDS ORDERED: ONDANSETRON ODT 4 MG TAB (6 TAB/ER DISP) PO PRN (15:05)
--- NOTE | 2018-02-14 16:25 | EKG REPORT ---
SEVERITY:- BORDERLINE ECG - SINUS RHYTHM PROBABLE LEFT ATRIAL ABNORMALITY : Confirmed by: Daniel Wilson MD 14-Feb-2018 16:24:34
== END 2018-02-14 15:27 | disposition home or self-care (01) ==
LOC: ER 09:47
DX: R55 Syncope and collapse (principal); R11.0 Nausea
CPT/HCPCS: 93005; 99285; 96361; 96374; 36415; 85025; 85610; 82272; 80053; 71045; 70450; 93010; J2405; J7040; A9270